=== PATIENT | male | born 1960 | race Caucasian/White ===

== ENCOUNTER 2021-02-27 14:47 | Outpatient (CLI) | payer OTHER, SELFPAY ==
--- NOTE | ~2021-02-27 | XR_ITS ---
EXAMINATION: XR abdomen/kub 1V INDICATION: Recurrent kidney stones TECHNIQUE: Supine views of the abdomen were obtained on three radiographs. COMPARISON: None FINDINGS: There are approximately nine stones projecting in the right kidney which measure up to 8 mm . There are approximately seven stones of the left kidney which measure up to 7 mm. There are right p elvic calcifications of unclear location. The bowel gas pattern is normal. The visualized lung bases are clear. There is mild lumbar spondylosis. IMPRESSION: 1. Bilateral nephrolithiasis. 2. Right pelvic calcifications of unclear location, ureteral stones and/or phleboliths. Reviewed, dictated and finalized at location F. TREATER HELPER IMPRESSION: 1. Bilateral nephrolithiasis. 2. Right pelvic calcifications of unclear location, ureteral stones and/or phle boliths.
== END 2021-02-27 14:48 | disposition home or self-care (01) ==
LOC: ANHIMG 15:00
PROVIDERS: Visit Provider Urology
DX: N20.0 Calculus of kidney (principal)
CPT/HCPCS: 74018

== ENCOUNTER 2021-03-17 01:28 | Day surgery (SDC) | payer OTHER, SELFPAY ==
[2021-03-12 15:01] VITALS: BMI 30.2
--- NOTE | 2021-03-12 15:14 | PC.NURSE ---
Report to the Outpatient Waiting Room, entrance under the green pavilion located off [facility], at time 0745 on date 03/17/21. OR Time: 0945. - You will be asked a series of questions to screen for COVID 19 for your protection. - A mask is required within the hospital. - No visitors are allowed at this time. Preoperative COVID Testing Requirements: No COVID Test needed if: (proof is required; if not received patient will have Rapid Test prior to entry) - Patient has received COVID Vaccine at least 14 days prior to procedure date or - Patient has positive COVID test result within last 90 days of surgery date. COVID Test needed if above criteria is not met Patients may have clear liquids (water, carbonated beverages, clear teas, apple juice) until 3 hours prior to surgery with a maximum of 20 ounces. - No food from midnight until time of surgery - Infants may have breast milk until 4 hours before surgery, formula 6 hours prior to surgery. - Children will be allowed to drink immediately following surgery. If applicable, please bring a bottle or sippy cup to assist with drinking. Juice, water, soda, and popsicles are readily available. For infants on formula, please bring formula the day of surgery. Pacifiers are allowed. Take the following medications with a SIP of water the morning of surgery: NONE Medications to discontinue per physician: VITAMINS/SUPPLEMENTS Date to take last dose: 03/13/21 Please no make-up, nail [place] islander, hairspray, perfume, deodorant, or body powder the day of surgery. No jewelry (including any body piercings) or valuables the day of surgery, leave them at home. Please take a shower or bath the night before, or the morning of, surgery with an antibacterial soap. Wear comfortable, loose fitting clothing. - Jewelry must be removed prior to entering the operating room. Rings and piercings that are not removed may be cut off. - The hospital will not accept responsibility for valuables. - Please leave all valuables, including medications, at home the day of surgery. If you are going home after surgery, a licensed van driver must drive you home. - NO public transportation without another adult. - We recommend that an adult stay with you for 24 hours following discharge. - We also recommend that you do not drive, make important decision, drink alcoholic beverages, or take any drugs that were not prescribed by your health care provider for at least 24 hours after your discharge time. Follow any additional instructions given to you from your surgeon. Telephone instructions given to JANIYA PINO and asked if any additional questions and then verbalized understanding. Patient advised to call surgeon office or pre surgery nurse liaison [phone] if any additional questions.
[2021-03-17] VITALS (7 sets, daily range): BP systolic 93–150; BP diastolic 53–91; PULSE 64–71; RESP 12–18; TEMP 36.3–36.9; O2SAT 93–98; BMI 30.7
--- NOTE | ~2021-03-17 | XR_ITS ---
EXAMINATION: XR retrograde pyelo w/stent RT DATE: 03/17/2021 09:53 INDICATION: Right-sided renal stone extraction with stent placement TECHNIQUE: 10 fluoroscopic images of the abdomen and pelvis were obtained during procedure performed by Dr. Vásquez. Radiologist was not present for the imaging or procedure. The amount of fluoroscopy time used during this procedure was 0.5 minutes. COMPARISON: 02/27/2021 FINDINGS: Spindle Frame Carver images redemonstrate 2 stones at the distalmost right ureter to suggest of some subtle stones i n the region of the lower pole of the right kidney. Subsequent images demonstrate a catheter and wire advanced into the right ureter. Retrograde contrast injections demonstrates a normal-appearing right renal collecting system with no hydronephrosis. Final image demonstrates a right internal ureteral s tent with loops formed in the right renal pelvis and in the bladder. The distal right ureteral stones are no longer visualized and have likely been extracted. IMPRESSION: 1. Right urolithiasis with likely extraction of a pair of stones at the distalmost right ureter and p lacement of a right internal ureteral stent in expected position. See procedure note for further deta il. Reviewed, dictated and finalized at location A. NG TECHNICIAN IMPRESSION: 1. Right urolithiasis with likely extraction of a pair of stones at the distalm ost right ureter and placement of a right internal ureteral stent in expected p osition. See procedure note for further detail.
--- NOTE | 2021-03-17 08:10 | WPDHPUPDATE1 ---
History and Physical Update Update Date/Time: 03/17/21 08:10 History and Physical has been reviewed, including an updated exam of the patient. There are NO changes in the patient's condition. Risks, benefits, and alternatives have been discussed and questions answered. Patient agrees to proceed with procedure. Proceed with cystoscopy, right retrograde pyelogram, right ureteroscopy with stone extraction, possible holmium laser, stent placement,
[2021-03-17] MEDS: LACTATED RINGERS 1,000 ML 30 ML IV CONT (08:23)
--- NOTE | 2021-03-17 08:34 | WPDANESEPPF ---
Anes - Initial Pre Proc Eval Procedure: Operation Date: 03/17/21 09:45 Proposed Procedures p Cystoscopy, Right Ureteroscopy, Right Retrograde Pyelogram Right Stone Extraction, Possible Right Stent, - Andrew Vásquez MD s Possible Holmium Laser Procedure - Andrew Vásquez MD s Trans Urethral Resection Bladder Neck - Andrew Vásquez MD Date/Time: 03/17/21 08:34 Surgeon: Andrew Vásquez MD Pre Op Diagnosis: right ureteral stone Patient Data Age: 60 Gender: M Height: 1.88 m Weight: 108.4 kg Last Vital Signs Temp 36.3 C L 03/17/21 08:26 Pulse 65 03/17/21 08:26 Resp 18 03/17/21 08:26 BP 150/91 H 03/17/21 08:26 Pulse Ox 98 03/17/21 08:26 Allergies Allergy/AdvReac Type Severity Reaction Status Date / Time Sulfa (Sulfonamide Allergy Fever Verified 03/17/21 08:05 Antibiotics) Home Medications Medication Instructions Recorded Confirmed Type cetirizine [Zyrtec] 10 mg PO DAILY 03/12/21 03/17/21 History finasteride 5 mg PO HS 03/12/21 03/17/21 History montelukast [Singulair] 10 mg PO DAILY 03/12/21 03/17/21 History multivitamin 1 tablet PO DAILY 03/12/21 03/17/21 History nitrofurantoin 100 mg PO Q12H 03/12/21 03/17/21 History tamsulosin 0.4 mg PO HS 03/12/21 03/17/21 History vitamin B complex [B 1 tablet PO DAILY 03/12/21 03/17/21 History Complex-Vitamin B12] Patient hx anesthesia problems: none Family hx anesthesia problems: none Results Review: All pre-operative results and documents have been reviewed as part of the pre-operative evaluation. [facility] Social History Social History Smoking status: Never smoker Alcohol intake: current Drinks per week: 1 Substance use: never Substance use type: does not use Living arrangements: with family Spiritual care concerns: No Anes - Eval Final PreProcedure Day of Procedure 03/17/21 08:34 Patient weight: overweight Heart: regular rate and rhythm Lungs: clear to auscultation Airway: Mallampati scale class II Neurological: alert and oriented Last oral intake: >/= 8 hours ASA classification: II Emergent: no Anesthetic plan: proceed Anesthesia type and monitoring: general LMA and standard monitoring Results Review: All pre-operative results and documents have been reviewed as part of the pre-operative evaluation. Informed Consent: The patient's anesthetic plan and its attendant risks and benefits were discussed with the patient/family/POA. Questions were solicited and answers provided to the satisfaction of the patient/family/POA.
[2021-03-17] MEDS: ceFAZolin 2 GM/D5W 50 ML 2 GM/50 ML BAG IVPB (09:17)
[2021-03-17] MEDS: LIDOCAINE HCL 2% GEL UROJET 10 ML PKG MUCOUS MEM (09:33)
[2021-03-17] MEDS: KETOROLAC 30 MG/ML VIAL (*BKC) IV PUSH (09:46)
--- NOTE | 2021-03-17 09:52 | W.PM.PROC2 ---
Procedure Note - Detailed Date of Procedure 03/17/21 Pre-op Diagnosis right ureteral stone Post-op Diagnosis same Procedure Performed Cystoscopy, right retrograde pyelogram, right ureteroscopy with stone extraction x2, right ureteral stent placement 4.8 Prydeinig contour Surgeon Andrew Vásquez MD Anesthesia general Description of Procedure Patient is taken to the operative suite correctly identified. Once anesthesia was obtained was placed in dorsal lithotomy position and prepped and draped usual sterile fashion. Twenty-two Prydeinig scope was entered into the bladder. He has minimal lateral lobe hypertrophy. There was evidence of prior resection of his bladder neck or incision of a median bar. There is a slight opening right at the bladder neck at 6:00 a.m. but this is nothing significant to address at this time. The bladder itself has no tumors. The right ureteral orifice had a stone protruding from it. We were able to manipulate a guidewire past it. Rigid ureteral scope was then inserted. He has 2 large stones which actually were able to retrieve their entirety and sent for analysis. These were retrieved using escape basket. Reinspection revealed no residual stones. Pyelogram was then performed to confirm placement of the stent. A 4.8 Prydeinig contour stent was then placed with the proximal end coiled in the renal pelvis and the distal in the bladder. 2% viscous lidocaine was inserted urethra. A 16 Prydeinig Pappas was placed with 10 cc in the balloon. He is taken recovery stable condition. Patient will have the catheter removed either Tuesday or Tuesday depending on the weather. Plan on stent removal next week and also scheduling him for a urodynamics test Drains Yes Packing No Pathology yes Complications No immediate complications Condition stable Disposition PACU
== END 2021-03-17 11:10 | disposition home or self-care (01) ==
PROVIDERS: Visit Provider Urology
PROC: (CPT 52352; principal; 2021-03-17 09:45)
PROC: 0TBB8ZZ Excision of Bladder, Via Natural or Artificial Opening Endoscopic (ICD-10-PCS; CPT 52332; 2021-03-17 09:45)
DX: N20.1 Calculus of ureter (principal)
CPT/HCPCS: 52332; 52352; 74420; 82365; 88300; A9270; C1758; C1769; C2617; J0690; J1100; J1170; J1885; J2250; J2405; J2704; J3010; J7120; Q9966